=== PATIENT | female | born 1945 | race Caucasian/White ===

== ENCOUNTER 2018-09-23 02:29 | Emergency (ER) | payer MEDICARE ==
[2018-09-23] MEDS ORDERED: SODIUM CHLORIDE 0.9% 1,000 ML IV STA (02:57)
--- NOTE | 2018-09-23 02:57 | ED ---
General Adult HPI - General Chief complaint: Allergic Reaction Stated complaint: tongue swelling Time Seen by Provider: 09/23/18 02:47 Source: patient, family Mode of arrival: ambulatory Limitations: no limitations - History of Present Illness Initial comments: Dictation was produced using [employer] dictation software. please excuse any g rammatical, word or spelling errors. Chief Complaint: 73-year-old female chief complaint of angioedema. History of Present Illness: 3-year-old [facility] She woke up approximately 1 hour prior to arrival with left tongue swelling. Patient is on lisinopril. Patient denies any history of hereditary angioedema or angioedema. Patient has any allergen exposure today or yesterday. Patient states that she feels like the left side of her tongue is swollen. Denies any difficulty breathing. Denies any sensation of throat closure. The ROS documented in this emergency department record has been reviewed and confirmed by me. Those systems with pertinent positive or negative responses have been documented in the HPI. All other systems are other negative and/or noncontributory. PHYSICAL EXAM: General Impression: Alert and oriented x3, not in acute distress HEENT: Normocephalic atraumatic, extra-ocular movements intact, pupils equal and reactive to light bilaterally, mucous membranes moist, normal phonation Cardiovascular: Heart regular rate and rhythm, S1&S2 audible, no murmurs, rubs or gallops Chest: Lungs clear to auscultation bilaterally, no rhonchi, no wheeze, no rales Abdomen: Bowel sounds present, abdomen soft, non-tender, non-distended, no organomegaly Musculoskeletal: Pulses present and equal in all extremities, no peripheral edema Motor: no focal deficits noted Neurological: CN II-XII grossly intact, no focal motor or sensory deficits noted Skin: Intact with no visualized rashes Psych: Normal affect and mood ED course: 73 female clinical presentation consistent with SAIRA inhibitor induced angioedema. She has isolated a symmetrical left tongue swelling. Signs upon arrival shows blood pressure 191-type worse vital signs within acceptable limits. There is no concern for ALLERGIC injury edema given the patient denies any allergen exposures. No concern for hereditary angioedema given that patient does not have any history or no family history of angioedema. Patient is resting comfortably at bedside. She shows no signs of respiratory distress. Patient be monitored in the emergency department.Basic labs obtained showing no acute processes. Patient observed in emergency part for almost 4 hours. Patient reevaluated with complete improvement of patient's symptoms. Patient's tongue does not show any swelling on reevaluation. It's phonation is at baseline. Patient clear for discharge. She is advised not to take any lisinopril. Patient also told to be cut is and a possible allergen exposures.. Patient clear for discharge. Return parameters discussed. Patient is in agreement and understanding. - Related Data Allergies Allergy/AdvReac Type Severity Reaction Status Date / Time Sulfa (Sulfonamide Allergy Rash/Hives Verified 09/23/18 02:45 Antibiotics) Penicillins AdvReac Confusion Verified 09/23/18 02:45 Review of Systems ROS Statement: Those systems with pertinent positive or pertinent negative responses have been documented in the HPI. ROS Other: All systems not noted in ROS Statement are negative. Past Medical History Additional Past Medical History / Comment(s): Pt. had defibrillator/ICD , removed for misfiring, Hernia History of Any Multi-Drug Resistant Organisms: None Reported Past Surgical History: Cholecystectomy, Hysterectomy Additional Past Surgical History / Comment(s): D&C Past Psychological History: Anxiety Smoking Status: Never smoker Past Alcohol Use History: Daily Past Drug Use History: None Reported General Exam Limitations: no limitations Course Vital Signs 09/23/18 09/23/18 09/23/18 02:39 03:09 03:37 Temperature 97.6 F Pulse Rate 90 85 84 Respiratory 18 18 20 Rate Blood Pressure 190/110 168/114 130/88 O2 Sat by Pulse 97 98 97 Oximetry 09/23/18 09/23/18 04:00 05:00 Temperature Pulse Rate 69 79 Respiratory 186 H 20 Rate Blood Pressure 144/89 141/79 O2 Sat by Pulse 98 97 Oximetry Medical Decision Making - Lab Data Result diagrams: 09/23/18 02:56 09/23/18 02:56 Lab Results 09/23/18 09/23/18 Range/Units 02:56 02:56 WBC 7.7 (3.8-10.6) k/uL RBC 4.67 (3.80-5.40) m/uL Hgb 13.9 (11.4-16.0) gm/dL Hct 41.5 (34.0-46.0) % MCV 88.9 (80.0-100.0) fL MCH 29.7 (25.0-35.0) pg MCHC 33.4 (31.0-37.0) g/dL RDW 14.3 (11.5-15.5) % Plt Count 188 (150-450) k/uL Neutrophils % 73 % Lymphocytes % 17 % Monocytes % 6 % Eosinophils % 2 % Basophils % 0 % Neutrophils # 5.7 (1.3-7.7) k/uL Lymphocytes # 1.3 (1.0-4.8) k/uL Monocytes # 0.5 (0-1.0) k/uL Eosinophils # 0.1 (0-0.7) k/uL Basophils # 0.0 (0-0.2) k/uL Sodium 136 L (137-145) mmol/L Potassium 4.4 (3.5-5.1) mmol/L Chloride 95 L (98-107) mmol/L Carbon Dioxide 29 (22-30) mmol/L Anion Gap 12 mmol/L BUN 24 H (7-17) mg/dL Creatinine 0.75 (0.52-1.04) mg/dL Est GFR (CKD-EPI)AfAm >90 (>60 ml/min/1.73 sqM) Est GFR (CKD-EPI)NonAf 80 (>60 ml/min/1.73 sqM) Glucose 146 H (74-99) mg/dL Calcium 9.7 (8.4-10.2) mg/dL Disposition Clinical Impression: Angioedema Disposition: HOME SELF-CARE Condition: Good Instructions (If sedation given, give patient instructions): Angioedema (ED) Is patient prescribed a controlled substance at d/c from ED?: No Referrals: Nan Rogers MD [Primary Care Provider] - 1-2 days Time of Disposition: 06:12
[2018-09-23 03:16] LABS: Basophils % (A) 0 %; Eosinophils # (A) 0.1 k/uL (0-0.7); Eosinophils % (A) 2 %; HCT 41.5 % (34.0-46.0); HGB 13.9 gm/dL (11.4-16.0); Lymphocytes # (A) 1.3 k/uL (1.0-4.8); Lymphocytes % (A) 17 %; MCH 29.7 pg (25.0-35.0); MCHC 33.4 g/dL (31.0-37.0); MCV 88.9 fL (80.0-100.0); Mean Platelet Volume 8.3; Monocytes # (A) 0.5 k/uL (0-1.0); Monocytes % (A) 6 %; Neutrophils # (A) 5.7 k/uL (1.3-7.7); Neutrophils % (A) 73 %; Platelet Count 188 k/uL (150-450); RBC 4.67 m/uL (3.80-5.40); RDW 14.3 % (11.5-15.5); WBC 7.7 k/uL (3.8-10.6)
[2018-09-23 03:23] LABS: African American GFR (CKD) >90 (>60 ml/min/1.73 sqM); Anion Gap 12 mmol/L; Blood Urea Nitrogen 24 mg/dL (7-17); Calcium 9.7 mg/dL (8.4-10.2); Carbon Dioxide 29 mmol/L (22-30); Chloride 95 mmol/L (98-107); Glucose 146 mg/dL (74-99); Potassium 4.4 mmol/L (3.5-5.1); Sodium 136 mmol/L (137-145)
[2018-09-23 05:32] VITALS: RESP 20
[2018-09-23 06:15] VITALS: BP 157/90; PULSE 73; TEMP 98.6
== END 2018-09-23 06:15 | disposition home or self-care (01) ==
LOC: EC 02:29
DX: T78.3XXA Angioneurotic edema, initial encounter (principal); Z88.2 Allergy status to sulfonamides; Z88.0 Allergy status to penicillin
CPT/HCPCS: 36415; 80048; 85025; 96360; 96361; 99283

== ENCOUNTER → 2019-09-15 | Outpatient (CLI) | payer MEDICARE ==
--- NOTE | 2019-09-16 23:13 | XR ---
EXAMINATION TYPE: XR foot limited RT DATE OF EXAM: 09/15/2019 COMPARISON: NONE HISTORY: 74-year-old female with medial right foot pain TECHNIQUE: 2 views FINDINGS: A ring on the second toe which the technologist indicates cannot be removed. Type I bipartite accesso ry navicular. Mild to moderate degenerative spurring at the first MTP joint. Small 2 mm corticated de nsity medial to the first metatarsal head, possible loose body or fragmented spur. Small posterior an d plantar calcaneal spurs. No acute fracture, subluxation, dislocation seen. IMPRESSION: [id number] first MTP joint OA. Small posterior and plantar heel spurs. No acute osseous abnorma lity seen. 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 These usually do not become symptomatic. C linically correlate.
== END | disposition home or self-care (01) ==
LOC: RADXRMAIN 13:57
PROVIDERS: ATTEND Nurse Practitioner
DX: M19.071 Primary osteoarthritis, right ankle and foot (principal)